=== PATIENT | female | born 1995 | race Caucasian/White ===

== ENCOUNTER → 2023-08-07 14:46 | Outpatient (REF) | payer OTHER, SELFPAY | LOC: PNTC 14:46 | PROVIDERS: ATTENDING PHYSICIAN Obstetrics & Gynecology | DX: Z36.0 Encounter for antenatal screening for chromosomal anomalies (principal); Z36.82 Encounter for antenatal screening for nuchal translucency | CPT/HCPCS: 76801; 76813 ==

== ENCOUNTER → 2023-10-04 16:21 | Outpatient (REF) | payer OTHER, SELFPAY | LOC: PNTC 16:21 | PROVIDERS: ATTENDING PHYSICIAN Obstetrics & Gynecology | DX: O35.5XX0 Maternal care for (suspected) damage to fetus by drugs, not applicable or unspecified (principal) | CPT/HCPCS: 76811 ==

== ENCOUNTER → 2023-11-13 14:28 | Outpatient (REF) | payer OTHER, SELFPAY ==
[2023-11-13 16:12] LABS: % Basophils 0.3 % (0-2); % Eosinophils 1.4 % (0-6); % Immature Granulocytes 0.5 % (0-0.5); % Lymphocytes 19.7 % (20.5-51.1); % Monocytes 6.7 % (1.7-9.3); % Neutrophils 71.4 % (42.2-75.2); Absolute Eosinophils 0.2 10^3/uL (0-0.7); Absolute Immature Granulocytes 0.1 10^3/uL (0-0.05); Absolute Lymphocytes 2.1 10^3/uL (1.2-3.4); Absolute Monocytes 0.7 10^3/uL (0.1-0.6); Absolute Neutrophils 7.6 10^3/uL (1.4-6.5); Hematocrit 32.8 % (37.0-47.0); Hemoglobin 11.3 g/dL (12.0-16.0); Mean Corp Hgb Conc. 34.5 g/dL (33.0-37.0); Mean Corpuscular Hgb 32.1 pg (27.0-31.0); Mean Corpuscular Volume 93.2 fL (81.0-99.0); Mean Platelet Volume 10.7 fL (7.4-10.4); Nucleated Red Blood Cells % 0 %; Platelet Count 173 10^3/uL (130-400); Red Blood Cell Count 3.52 10^6/uL (4.20-5.40); Red Cell Dist. Width 13.2 % (11.5-14.5); White Blood Cell Count 10.6 10^3/uL (4.8-10.8)
[2023-11-13 16:43] LABS: 1 Hour after 50gm 138 mg/dl
== END ==
LOC: REG 14:28
PROVIDERS: ATTENDING PHYSICIAN Obstetrics & Gynecology; FAMILY PHYSICIAN Nurse Practitioner Family
DX: Z34.90 Encounter for supervision of normal pregnancy, unspecified, unspecified trimester (principal)
CPT/HCPCS: 36415; 82950; 85025; 86780; 86850; 86900; 86901; J2790

== ENCOUNTER → 2023-12-13 14:39 | Outpatient (REF) | payer OTHER, SELFPAY | LOC: PNTC 14:39 | PROVIDERS: ATTENDING PHYSICIAN Obstetrics & Gynecology | DX: O35.5XX0 Maternal care for (suspected) damage to fetus by drugs, not applicable or unspecified (principal); Z34.00 Encounter for supervision of normal first pregnancy, unspecified trimester | CPT/HCPCS: 76816 ==

== ENCOUNTER 2024-02-18 03:20 | Inpatient (IN) | payer OTHER, SELFPAY ==
[2024-02-18 03:27] VITALS: BP 131/83; BMI 27.8
[2024-02-18 03:59] LABS: % Basophils 0.4 % (0-2); % Eosinophils 0.4 % (0-6); % Immature Granulocytes 0.4 % (0-0.5); % Lymphocytes 18.2 % (20.5-51.1); % Monocytes 7.6 % (1.7-9.3); Absolute Basophils 0.1 10^3/uL (0-0.2); Absolute Eosinophils 0.1 10^3/uL (0-0.7); Absolute Immature Granulocytes 0.1 10^3/uL (0-0.05); Absolute Lymphocytes 2.5 10^3/uL (1.2-3.4); Absolute Monocytes 1.1 10^3/uL (0.1-0.6); Absolute Neutrophils 10.1 10^3/uL (1.4-6.5); Mean Corp Hgb Conc. 34.2 g/dL (33.0-37.0); Mean Corpuscular Hgb 30.9 pg (27.0-31.0); Mean Corpuscular Volume 90.3 fL (81.0-99.0); Mean Platelet Volume 12.3 fL (7.4-10.4); Nucleated Red Blood Cells % 0 %; Platelet Count 181 10^3/uL (130-400); Red Blood Cell Count 4.21 10^6/uL (4.20-5.40); Red Cell Dist. Width 13.4 % (11.5-14.5); White Blood Cell Count 13.9 10^3/uL (4.8-10.8)
[2024-02-18] MEDS: SUBLIMAZE 100 MCG EPIDURAL (05:39)
[2024-02-18] MEDS: FENTANYL/BUPIVACAINE 100 EPIDURAL ×2 (05:39→13:25)
[2024-02-18] MEDS: LR 1000 IV (06:01)
[2024-02-18] MEDS: CALAN EXTENDED RELEASE 180 MG PO (07:57)
[2024-02-18] MEDS: PRENATAL PLUS 1 TABLET PO (07:57)
[2024-02-18] MEDS: PITOCIN 30 UNITS/NSS 500 ML IV (15:23)
[2024-02-18] MEDS: ANCEF 10 IV (16:24)
[2024-02-19 06:30] LABS: Hematocrit 32.2 % (37.0-47.0); Hemoglobin 11.3 g/dL (12.0-16.0)
[2024-02-19] MEDS: PRENATAL PLUS 1 TABLET PO (07:30)
[2024-02-19] MEDS: CALAN EXTENDED RELEASE 180 MG PO ×2 (08:10→20:38)
[2024-02-19] MEDS: MOTRIN 600 MG PO ×2 (08:55→17:44)
[2024-02-19] MEDS: HYPERRHO S-D 1500 UNIT IM (10:18)
[2024-02-19] MEDS: TYLENOL 650 MG PO (12:57)
[2024-02-19 13:58] LABS: Syphilis/T. pallidum Ab Reflex Negative (Negative)
[2024-02-20] MEDS: PRENATAL PLUS 1 TABLET PO (07:55)
[2024-02-20] MEDS: CALAN EXTENDED RELEASE 180 MG PO (07:55)
[2024-02-20] MEDS: MOTRIN 600 MG PO (07:55)
[2024-02-20] MEDS: SENOKOT-S 1 TABLET PO (07:56)
== END 2024-02-20 10:57 | disposition home or self-care (01) | DRG 806 ==
LOC: LDRP 03:20
PROVIDERS: Obstetrics & Gynecology; ADMITTING PHYSICIAN Obstetrics & Gynecology; ATTENDING PHYSICIAN Obstetrics & Gynecology; FAMILY PHYSICIAN Family Medicine
PROC: 10D17Z9 Manual Extraction of Products of Conception, Retained, Via Natural or Artificial Opening (ICD-10-PCS; 2024-02-18)
PROC: 0KQM0ZZ Repair Perineum Muscle, Open Approach (ICD-10-PCS; 2024-02-18)
PROC: 10E0XZZ Delivery of Products of Conception, External Approach (ICD-10-PCS; 2024-02-18)
PROC: 30233S1 Transfusion of Nonautologous Globulin into Peripheral Vein, Percutaneous Approach (ICD-10-PCS; 2024-02-19)
DX: O77.0 Labor and delivery complicated by meconium in amniotic fluid (principal); O36.0130 Maternal care for anti-D [Rh] antibodies, third trimester, not applicable or unspecified; Z37.0 Single live birth; O70.1 Second degree perineal laceration during delivery; O73.0 Retained placenta without hemorrhage; Z3A.40 40 weeks gestation of pregnancy; Z67.11 Type A blood, Rh negative
CPT/HCPCS: 88307; 76857; 85014; 85018; 85025; 85461; 86780; 86850; 86870; 86900; 86901; J2790

== ENCOUNTER → 2025-06-03 15:51 | Outpatient (REF) | payer OTHER, SELFPAY | LOC: RAD 15:51 | PROVIDERS: ATTENDING PHYSICIAN Obstetrics & Gynecology; FAMILY PHYSICIAN Nurse Practitioner Family | DX: O26.851 Spotting complicating pregnancy, first trimester (principal) | CPT/HCPCS: 76801; 76817 ==